=== PATIENT | male | born 1985 | race Caucasian/White ===

== ENCOUNTER → 2016-08-12 | Outpatient (CLI) | payer BC ==
--- NOTE | 2016-08-12 12:10 | DIAGNOSTIC IMAGING REPORT ---
Ultrasound right foot EXTREMITY NONVASCULAR LIMITED CLINICAL HISTORY: R/O VARICOSE VEIN, PAIN nodule TECHNIQUE: Doppler and real-time ultrasound COMPARISON STUDY: None FINDINGS: There are Cystic regions within the subcutaneous tissues of the right foot. These measure 1.0 x 1.6 cm and 2.2 x 0.7 cm respectively. There is no significant vascular flow. Several vascular structures are identified adjacent to the cystic components which are considered patent. No significant. Venous varicosities are identified. IMPRESSION: Areas of nodularity appear to represent cystic nodules within the subcutaneous tissues of the lateral right foot. Possibility of sebaceous cysts is considered. No evidence for varicosities Electronically signed by: Charles Eaton M.D. 08/12/2016 12:09 PM Dictated Date/Time: 08/12/2016 12:07 PM
== END | disposition home or self-care (01) ==
LOC: C.ULTR 11:13
PROVIDERS: ATTEND Family Medicine
DX: M79.671 Pain in right foot (principal)

== ENCOUNTER → 2016-11-08 | Outpatient (CLI) | payer BC ==
--- NOTE | 2016-11-08 15:20 | DIAGNOSTIC IMAGING REPORT ---
SOFT TISS HEAD/NECK-THYROID HISTORY: Mass LOCALIZED SWELLING, MASS AND LUMP ON NECK COMPARISON: None. FINDINGS: Ultrasonic evaluation of the posterior neck at the site of clinically palpable nodularity shows a reasonably well-circumscribed isoechoic nodule measuring 1.5 x 1.0 cm. Is suggestive of lipoma. IMPRESSION: The area palpable nodularity is highly suggestive of a subcutaneous lipoma measuring 1.5 x 1.0 cm. The above report was generated using voice recognition software. It may contain grammatical, syntax or spelling errors. Electronically signed by: Charles Eaton M.D. 11/08/2016 3:18 PM Dictated Date/Time: 11/08/2016 3:17 PM
== END | disposition home or self-care (01) ==
LOC: C.ULTRBC 14:50
PROVIDERS: ATTEND Family Medicine
DX: R22.1 Localized swelling, mass and lump, neck (principal)

== ENCOUNTER → 2016-12-19 | Outpatient (CLI) | payer BC | END | disposition home or self-care (01) | LOC: C.PATHSPEC 17:05 | PROVIDERS: ATTEND Urology | DX: Z30.2 Encounter for sterilization (principal) ==

== ENCOUNTER 2017-04-19 14:43 | Emergency (ER) | payer BC ==
[~2017-04-19] VITALS: Ht 157.5 cm; Wt 67.4 kg
[2017-04-19 14:45] VITALS: TEMP 36.9; Ht 157.5 cm; Wt 67.4 kg
--- NOTE | 2017-04-19 15:03 | EMERGENCY ROOM VISIT NOTE ---
History Report prepared by Parviz: Shreyas Porras Under the Supervision of: Dr. Ermias Merlos M.D. First contact with patient: 14:55 Chief Complaint: TESTICULAR PAIN Stated Complaint: TESTICULAR PAIN Nursing Triage Summary: testicular pain pt has intermittent pain since Vasectomy 2 months ago pain is now more severe and constant History of Present Illness The patient is a 31 year old male who presents to the Emergency Room for evaluation of bilateral testicular pain. Worse on left. Ongoing for few months though recently worsening, especially last few days. Did have vasectomy a few months ago which seems to have made this worse. No urinary burning, frequency, hesitancy, blood. No trauma, fevers, flank pain. He is in monogamous relationship with and denies concerns for infection. Denies anal intercourse. No recent abx. No medications for this. History of Chlamydia many years ago which was treated. Recent right foot/achilles surgery. Source of History: patient Onset: 3 months ago Position: other (groin) Timing: constant Associated Symptoms: No abdominal pain (Patient denies flank pain), No urinary symptoms Note: Patient denies multiple partners and engaging in anal sex. Review of Systems See HPI for pertinent positives & negatives. A total of 6 systems reviewed and were otherwise negative. Social History Smoking Status: Former Smoker Smokeless Tobacco Use: No Alcohol Use: occasionally Drug Use: none Marital Status: Housing Status: lives with family Current/Historical Medications Scheduled Doxycycline Hyclate (Vibramycin), 100 MG PO BID Allergies Coded Allergies: No Known Allergies (Unverified , 04/19/17) Physical Exam Vital Signs Date Time Temp Pulse Resp B/P (MAP) Pulse Ox O2 Delivery O2 Flow Rate FiO2 04/19/17 17:00 82 18 136/80 99 Room Air 04/19/17 14:45 36.9 92 20 126/80 99 Room Air Physical Exam GENERAL: Patient is well appearing and in no acute distress. HEENT: No acute trauma, normocephalic atraumatic, mucous membranes moist, no nasal congestion, no scleral icterus. NECK: No stridor, no adenopathy, no meningismus, trachea is midline. ABDOMEN: Soft, nontender, bowel sounds positive, no masses appreciated, no peritonitis. EXTREMITIES: Normal motion all extremities, no cyanosis, no edema. NEUROLOGIC: Alert and oriented, no acute motor or sensory deficits, no focal weakness, cranial nerves grossly intact. SKIN: No rash, no jaundice, no diaphoresis. GENITOURINARY: Normal penis. Normal visualized scrotum. Tenderness to palpation for bilateral epididymitis. Pain with movement of testicles. Medical Decision & Procedures ER Provider Diagnostic Interpretation: Radiology results and stated below per my review and radiologist interpretation: ULTRASOUND TESTES AND SCROTUM CLINICAL HISTORY: Scrotal pain and swelling. COMPARISON STUDY: No priors. TECHNIQUE: Real-time, grayscale, and color Doppler sonography of the testes and scrotum is performed. Images are reviewed in the transverse and longitudinal planes. FINDINGS: The testes are normal in size and homogeneous in echotexture. The right testis measures 4.4 x 2.4 x 3.2 cm and the left testis measures 4.5 x 2.5 x 3.3 cm. No intratesticular mass is seen. Testicular blood flow is normal and symmetric. Normal Doppler waveforms are identified in both testes. The epididymal heads are normal in appearance. The right epididymal head measures 1.3 cm in length and the left epididymal head measures 1.0 cm in length. A 3 mm left epididymal head cyst is incidentally noted. The left epididymal head appears slightly hyperemic as compared to the right on color imaging. No varicocele or hydrocele is seen. IMPRESSION: 1. Unremarkable sonographic appearance of the testes. 2. The left epididymis appears mildly hyperemic as compared to the right. Correlate clinically for evidence of epididymitis. Electronically signed by: Jesus Che M.D. 04/19/2017 4:22 PM Dictated Date/Time: 04/19/2017 4:20 PM Laboratory Results Test 04/19/17 15:07 Urine Color YELLOW Urine Appearance CLEAR (CLEAR) Urine pH 5.5 (4.5-7.5) Urine Specific Boyds 1.032 (1.000-1.030) Urine Protein NEG (NEG) Urine Glucose (UA) NEG (NEG) Urine Ketones TRACE (NEG) Urine Occult Blood NEG (NEG) Urine Nitrite NEG (NEG) Urine Bilirubin NEG (NEG) Urine Urobilinogen NEG (NEG) Urine Leukocyte Esterase NEG (NEG) Urine WBC (Auto) 1-5 /hpf (0-5) Urine RBC (Auto) 0-4 /hpf (0-4) Urine Hyaline Casts (Auto) 1-5 /lpf (0-5) Urine Epithelial Cells (Auto) 0-5 /lpf (0-5) Urine Bacteria (Auto) NEG (NEG) Laboratory results as reviewed by me. Medications Administered Medications (Trade) Dose Ordered Sig/Dwaine Route Start Time Stop Time Status Last Admin Dose Admin Ceftriaxone Sodium (Rocephin Im) 500 mg NOW STAT IM 04/19/17 16:38 04/19/17 16:39 DC 04/19/17 16:59 500 MG Doxycycline Hyclate (Vibramycin Cap) 100 mg ONE ONCE PO 04/19/17 16:45 04/19/17 16:46 DC 04/19/17 16:57 100 MG ED Course 1455: The patient was evaluated in room B11. A complete history and physical exam was performed. 1632: I checked on the patient and he is doing well. 1640: I reevaluated the patient. Discussed results and discharge instructions: He verbalized understanding and agreement. The patient is ready for discharge. Medical Decision Differential: Torsion, Mass, Infection, Abscess, Hernia, Hydrocele, Epididymitis , Trauma, Renal Colic, Intraabdominal Process, amongst other pathologies entertained. 31 yr old male with bilateral (L>R) testicular pain for last few months but worse last week or so. TTP over epididymis on exam without abscess/erythema. UA clear. US consistent with epididymitis. With recent tendon surgery right achilles would like to avoid Levaquin, thus will treat with IM Rocephin/Doxy. Stressed PCP follow up. No concerns STI though did discuss just having this checked by PCP. Medication Reconcilliation Current Medication List: was personally reviewed by me Blood Pressure Screening Patient's blood pressure: Normal blood pressure Blood pressure disposition: Did not require urgent referral Impression Primary Impression: Epididymitis, bilateral Scribe Attestation The scribe's documentation has been prepared under my direction and personally reviewed by me in its entirety. I confirm that the note above accurately reflects all work, treatment, procedures, and medical decision making performed by me. Departure Information Prescriptions Doxycycline Hyclate (VIBRAMYCIN) 100 Mg Cap 100 MG PO BID for 10 Days, #20 CAP Prov: Ermias Merlos M.D. 04/19/17 Referrals No Doctor, Assigned (PCP) Patient Instructions ED Epididymitis, My [facility] Additional Instructions Please follow up with PCP/Urologist for follow up.
--- NOTE | 2017-04-19 16:23 | DIAGNOSTIC IMAGING REPORT ---
ULTRASOUND TESTES AND SCROTUM CLINICAL HISTORY: Scrotal pain and swelling. COMPARISON STUDY: No priors. TECHNIQUE: Real-time, grayscale, and color Doppler sonography of the testes and scrotum is performed. Images are reviewed in the transverse and longitudinal planes. FINDINGS: The testes are normal in size and homogeneous in echotexture. The right testis measures 4.4 x 2.4 x 3.2 cm and the left testis measures 4.5 x 2.5 x 3.3 cm. No intratesticular mass is seen. Testicular blood flow is normal and symmetric. Normal Doppler waveforms are identified in both testes. The epididymal heads are normal in appearance. The right epididymal head measures 1.3 cm in length and the left epididymal head measures 1.0 cm in length. A 3 mm left epididymal head cyst is incidentally noted. The left epididymal head appears slightly hyperemic as compared to the right on color imaging. No varicocele or hydrocele is seen. IMPRESSION: 1. Unremarkable sonographic appearance of the testes. 2. The left epididymis appears mildly hyperemic as compared to the right. Correlate clinically for evidence of epididymitis. Electronically signed by: Jesus Che M.D. 04/19/2017 4:22 PM Dictated Date/Time: 04/19/2017 4:20 PM
[2017-04-19] MEDS ORDERED: CEFTRIAXONE SOD 350MG/ML 1 GM VIAL IM STA (16:38)
[2017-04-19] MEDS ORDERED: DOXY100C PO (16:40)
[2017-04-19] MEDS ORDERED: DOXYCYCLINE HYCLATE 100 MG CAP PO ONE (16:45)
[2017-04-19 17:00] VITALS: BP 136/80; PULSE 82; O2SAT 99
== END 2017-04-19 17:05 | disposition home or self-care (01) ==
LOC: C.EDB 14:45
DX: N45.1 Epididymitis (principal); Z87.891 Personal history of nicotine dependence